=== PATIENT | male | born 1995 ===

== ENCOUNTER 2017-04-05 01:25 | Emergency (ER) | payer SELFPAY ==
[2017-04-05 01:40] VITALS: O2SAT 98
[2017-04-05] MEDS ORDERED: Naproxen 550 mg Tab PO STA (01:57)
[2017-04-05] MEDS ORDERED: Naproxen 550 mg Tab PO ONE (02:18)
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
[2017-04-05 05:25] VITALS: BP 120/80; PULSE 80; RESP 14; TEMP 98
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
== END 2017-04-05 03:50 | disposition home or self-care (01) ==
LOC: C.ER 01:25
DX: M25.562 Pain in left knee (principal)

== ENCOUNTER 2017-07-05 19:48 | Emergency (ER) | payer SELFPAY ==
[2017-07-05 19:57] VITALS: TEMP 98.6
[2017-07-05] MEDS ORDERED: Sodium Chloride 0.9% 1,000 ML ONE (19:58)
[2017-07-05 20:16] LABS: BASO # 0.1 K/uL (0.0-0.2); BASO % 1.6 % (0.0-2.0); EOS # 0.1 K/uL (0.0-0.7); EOS % 1.3 % (0.0-4.0); HEMOGLOBIN 15.6 g/dL (12.0-18.0); LYMPH # 2.1 K/uL (1.0-4.3); LYMPH % 30.2 % (20.0-40.0); MEAN CELL VOLUME 89.6 fL (80.0-94.0); MEAN CORPUSCULAR HEMOGLOBIN 31.1 pg (27.0-31.0); MEAN CORPUSCULAR HGB CONC 34.7 g/dL (33.0-37.0); MEAN PLATELET VOLUME 8.9 fL (7.2-11.7); MONO # 0.4 K/uL (0.0-0.8); MONO % 5.7 % (0.0-10.0); NEUT # 4.3 K/uL (1.8-7.0); NEUT % 61.2 % (50.0-75.0); RBC 5.01 Mil/uL (4.40-5.90); RED CELL DISTRIBUTION WIDTH 12.7 % (11.5-14.5)
[2017-07-05] MEDS ORDERED: Naloxone 0.4 mg/ml Inj (Adult) IV ONE (20:20)
[2017-07-05] MEDS ORDERED: Naloxone 0.4 mg/ml Inj (Adult) ONE ×2 (20:25→21:50)
[2017-07-05 20:32] LABS: ALB/GLOB RATIO 1.3 (1.0-2.1); ALBUMIN 4.5 g/dL (3.5-5.0); ALT/SGPT 24 U/L (21-72); AST/SGOT 22 U/L (17-59); BLOOD UREA NITROGEN 9 mg/dL (9-20); CALCIUM 7.8 mg/dl (8.6-10.4); GFR AFRICAN-AMERICAN > 60; GFR NON-AFRICAN AMERICAN > 60
--- NOTE | 2017-07-05 20:35 | C.PDOC ---
History Of Present Illness 22 y/o male brought in by ambulance presents to the ED for narcotics overdose. Prior to arrival EMS gave Narcan intranasal after patient admitted to using oxycodone. PMD: None provided per Grandfather @ bedside, pt with 3 prior OD's, failed outpatient long-term detox, could not get into a branch. actively using whatever street oral tabs he can get, believes he bought Percocet /Oxycodone today, but now believes he bought something laced with benzo's but cannot define. pt does not know his father, his mother killed herself, and pt's aunt ( grandfather's arely) had substance abuse issues and committed suicide last year. pt's grandmother is chronically ill @ home and addicted to narcotic pain relievers. There are no guns in the house. Time Seen by Provider: 07/05/17 20:16 Chief Complaint (Nursing): Substance Abuse History Per: Patient History/Exam Limitations: intoxication Onset/Duration Of Symptoms: Hrs Current Symptoms Are (Timing): Still Present Modifying Factor(s): Narcotics Past Medical History Vital Signs: Last Vital Signs Temp 98.6 F 07/05/17 19:53 Pulse 102 H 07/05/17 23:28 Resp 18 07/05/17 23:28 BP 146/98 H 07/05/17 23:28 Pulse Ox 97 07/06/17 00:27 - Medical History PMH: HTN Surgical History: No Surg Hx Family History: States: Unknown Family Hx - Social History Hx Alcohol Use: Yes Hx Substance Use: No - Immunization History Hx Tetanus Toxoid Vaccination: Yes Hx Influenza Vaccination: No Hx Pneumococcal Vaccination: No Review Of Systems Review Of Systems: ROS cannot be obtained secondary to pt's inabilty to answer questions. Psych: Positive for: Other (narcotics overdose) Physical Exam - Physical Exam Appears: No Acute Distress Skin: Normal Color, Warm, Dry Head: Atraumatic, Normacephalic Eye(s): bilateral: Abnormal Pupil (pinpoint) Nose: Normal Oral Mucosa: Other (no EtOH on breath) Neck: Normal, Normal ROM, Supple Cardiovascular: Rhythm Regular, No Murmur Respiratory: Normal Breath Sounds Gastrointestinal/Abdominal: Normal Exam, Other (vomited large amount of fluid on bedside) Back: Normal Inspection, No CVA Tenderness, No Vertebral Tenderness Extremity: Normal ROM, No Pedal Edema, No Deformity Neurological/Psych: Other (stuporous) ED Course And Treatment - Laboratory Results Result Diagrams: 07/05/17 20:11 07/05/17 20:20 O2 Sat by Pulse Oximetry: 97 (RA) Pulse Ox Interpretation: Normal Critical Care Time - Critical Care Note Total Time (in mins): 90 Documented critical care: time excludes all time spent performing seperately billable procedures. Medical Decision Making Medical Decision Making: persistent polysubstance abuse, alcohol abuse pt refused detox family and friends @ bedside encouraging detox, pt prefers to follow-up as outpatient. though u-tox + for benzo's only, pt with pinpoint pupils and dramatically improved with Narcan suggesting opiate use as well street-bought combination meds may not show up in our 7 item u-tox Disposition Doctor Will See Patient In The: Office Counseled Patient/Family Regarding: Studies Performed, Diagnosis - Disposition Referrals: Alcoholics Anonymous [Outside] [facility] [Outside] [facility] [Outside] [facility] [Outside] Disposition: HOME/ ROUTINE Disposition Time: 00:26 Condition: GOOD Additional Instructions: seek a substance abuse program Seek AA follow-up with our outpatient resources as listed below. Keep Narcan in your pocket at all times. Tell the people you are with to take it out of your pocket and spray up your nose to save your life from the next opiate overdose Have your family keep Narcan on their person and in their homes when you visit, in case of future narcotics overdose Prescriptions: Naloxone HCl [Narcan] 4 mg NS ONCE PRN #1 spray PRN Reason: opiate abuse Instructions: Drug Abuse and Drug Addiction (DC), Opioid Use Disorder Forms: [employer] (Slovenian) - Clinical Impression Clinical Impression: Polysubstance (including opioids) dependence, binge pattern - Scribe Statement The provider has reviewed the documentation as recorded by the Scribe ( Hiral Alejandro) All medical record entries made by the Scribe were at my direction and personally dictated by me. I have reviewed the chart and agree that the record accurately reflects my personal performance of the history, physical exam, medical decision making, and the department course for this patient. I have also personally directed, reviewed, and agree with the discharge instructions and disposition.
[2017-07-05 20:59] LABS: SQUAMOUS EPITHIAL < 1 /hpf (0-5); URINE BACTERIA RARE (<OCC); URINE BILIRUBIN NEGATIVE (NEGATIVE); URINE BLOOD NEGATIVE (NEGATIVE); URINE CLARITY Hazy (Clear); URINE COLOR Yellow (YELLOW); URINE GLUCOSE (UA) NORMAL (Normal); URINE LEUKOCYTE ESTERASE NEG Leu/uL (Negative); URINE PROTEIN 2+ mg/dL (NEGATIVE); URINE UROBILINOGEN NORMAL mg/dL (0.2-1.0)
[2017-07-05 21:11] LABS: BARBITURATES, UR NEGATIVE (NEGATIVE); BENZODIAZEPINES, UR POSITIVE (NEGATIVE); OPIATES, UR NEGATIVE (NEGATIVE); PHENCYCLIDINE, UR NEGATIVE (NEGATIVE)
[2017-07-05] MEDS ORDERED: Naloxone 0.4 mg/ml Inj (Adult) IVP STA (21:54)
[2017-07-05 23:28] VITALS: BP 146/98; PULSE 102; RESP 18
[2017-07-06 00:28] VITALS: O2SAT 97
--- NOTE | 2017-07-08 08:30 | CARD ---
APPROVED REPORT EKG Measurement Heart [id number] VT [id number] [id number] <Conclusion> Sinus tachycardia Minimal voltage criteria for LVH, may be normal variant Nonspecific T wave abnormality Abnormal ECG
== END 2017-07-06 00:33 | disposition home or self-care (01) ==
LOC: C.ER 19:48
DX: F11.20 Opioid dependence, uncomplicated (principal)
CPT/HCPCS: 80053; 81001; 82948; 85025; 93005; 96374; 96375; 96376; 99285; G0480; J2310; J2405

== ENCOUNTER 2018-02-12 06:52 | Emergency (ER) | payer BC ==
[2018-02-12 07:13] VITALS: BP 140/94; PULSE 92; RESP 20; TEMP 98.8; O2SAT 97
[2018-02-12] MEDS ORDERED: Amoxicillin-Clav 875-125 mg Tab PO STA (07:39)
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
[2018-02-12] MEDS ORDERED: Amoxicillin-Clav 875-125 mg Tab PO ONE (08:12)
== END 2018-02-12 08:15 | disposition home or self-care (01) ==
LOC: C.ER 06:52
DX: S31.154A Open bite of abdominal wall, left lower quadrant without penetration into peritoneal cavity, initial encounter (principal); Y04.1XXA Assault by human bite, initial encounter

== ENCOUNTER 2018-07-17 09:23 | Inpatient (IN) | payer BC ==
[2018-07-17 10:42] LABS: BASO % 0.2 % (0.0-2.0); LYMPH # 1.3 K/uL (1.0-4.3); LYMPH % 9.1 % (20.0-40.0); MEAN CORPUSCULAR HEMOGLOBIN 31.4 pg (27.0-31.0); MEAN PLATELET VOLUME 9.4 fL (7.2-11.7); MONO # 0.7 K/uL (0.0-0.8); NEUT # 12.4 K/uL (1.8-7.0); NEUT % 85.7 % (50.0-75.0); PLATELET COUNT 289 K/uL (130-400); RBC 4.76 Mil/uL (4.40-5.90); RED CELL DISTRIBUTION WIDTH 13.1 % (11.5-14.5)
[2018-07-17 10:43] LABS: MEAN CELL VOLUME 92.5 fL (80.0-94.0); WHITE BLOOD COUNT 14.5 K/uL (4.8-10.8)
[2018-07-17] MEDS ORDERED: Sodium Chloride 0.9% 1,000 ML IV ONE (10:47)
[2018-07-17 10:52] LABS: ALB/GLOB RATIO 1.3 (1.0-2.1); ALBUMIN 5.1 g/dL (3.5-5.0); ALT/SGPT 32 U/L (21-72); AST/SGOT 40 U/L (17-59); BLOOD UREA NITROGEN 15 mg/dL (9-20); CALCIUM 10.4 mg/dl (8.6-10.4); GFR NON-AFRICAN AMERICAN > 60
[2018-07-17 10:53] LABS: LYMPHOCYTE 9 % (20-40); MONOCYTE 4 % (0-10); NEUTROPHIL 87 % (50-75); TOTAL CELLS COUNTED 100
[2018-07-17 10:54] LABS: PLATELET ESTIMATE NORMAL (NORMAL)
[2018-07-17 10:55] LABS: ANISOCYTOSIS SLIGHT; TOXIC GRANULATION PRESENT
[2018-07-17] MEDS ORDERED: Sodium Chloride 0.9% 1,000 ML ONE (11:00)
[2018-07-17 11:10] LABS: SQUAMOUS EPITHIAL < 1 /hpf (0-5); URINE BILIRUBIN NEGATIVE (NEGATIVE); URINE BLOOD NEGATIVE (NEGATIVE); URINE CLARITY Hazy (Clear); URINE COLOR Yellow (YELLOW); URINE GLUCOSE (UA) NORMAL (Normal); URINE LEUKOCYTE ESTERASE TRACE Leu/uL (Negative); URINE PROTEIN 1+ mg/dL (NEGATIVE); URINE UROBILINOGEN NORMAL mg/dL (0.2-1.0)
[2018-07-17 11:41] LABS: BARBITURATES, UR NEGATIVE (NEGATIVE); BENZODIAZEPINES, UR NEGATIVE (NEGATIVE); OPIATES, UR NEGATIVE (NEGATIVE); PHENCYCLIDINE, UR NEGATIVE (NEGATIVE)
--- NOTE | 2018-07-17 12:11 | C.PDOC ---
History Of Present Illness 23 year old male with PMHx of anxiety, depression and substance abuse presents to the ED with grandfather requesting detoxification. Reports he takes Percocet, Xanax and Butorphanol that he buys on the street. Complains of bodyaches, nausea, chills, and vomiting for the past week. Denies any sore throat, headache, neck pain, chest pain, or shortness of breath. Patient presents febrile with a temperature of 100.2 Time Seen by Provider: 07/17/18 09:42 Chief Complaint (Nursing): Substance Abuse History Per: Patient, Family (grandfather) History/Exam Limitations: no limitations Onset/Duration Of Symptoms: Days Current Symptoms Are (Timing): Still Present Suicide/Self Injury Attempted (Context): None Modifying Factor(s): Other (Percocet, Xanax, Butorphanol ) Past Medical History Reviewed: Historical Data, Nursing Documentation, Vital Signs Vital Signs: Last Vital Signs Temp 100.2 F H 07/17/18 10:44 Pulse 62 07/17/18 10:44 Resp 18 07/17/18 10:44 BP 163/95 H 07/17/18 10:44 Pulse Ox 100 07/17/18 10:44 Primary Care Provider: FAMILY PROVIDER,NO - Medical History PMH: HTN Surgical History: No Surg Hx Family History: States: No Known Family Hx - Social History Hx Alcohol Use: No Hx Substance Use: Yes - Immunization History Hx Tetanus Toxoid Vaccination: Yes Hx Influenza Vaccination: No Hx Pneumococcal Vaccination: No Review Of Systems Except As Marked, All Systems Reviewed And Found Negative. Constitutional: Positive for: Fever, Chills, Other (bodyaches) ENT: Negative for: Throat Pain Cardiovascular: Negative for: Chest Pain Respiratory: Negative for: Shortness of Breath Gastrointestinal: Positive for: Nausea, Vomiting. Negative for: Abdominal Pain, Diarrhea Musculoskeletal: Negative for: Neck Pain, Back Pain Neurological: Negative for: Headache Physical Exam - Physical Exam Appears: Non-toxic, Other (ill-appearing, minimal painful distress ) Skin: Warm, Dry, No Rash Head: Normacephalic Eye(s): bilateral: Normal Inspection, PERRL, EOMI Ear(s): Bilateral: Normal Nose: Normal Oral Mucosa: Moist Tongue: Normal Appearing Lips: Normal Appearing Throat: Normal Neck: Supple Chest: Symmetrical Cardiovascular: Rhythm Regular Respiratory: Normal Breath Sounds, No Rales, No Rhonchi, No Wheezing Gastrointestinal/Abdominal: Soft, No Tenderness, No Guarding, No Rebound Neurological/Psych: Oriented x3, Normal Speech Gait: Steady ED Course And Treatment - Laboratory Results Result Diagrams: 07/17/18 10:34 07/17/18 10:34 Lab Results: Total Bilirubin 0.6 mg/dL (0.2-1.3) 07/17/18 10:34 AST 40 U/L (17-59) 07/17/18 10:34 ALT 32 U/L (21-72) 07/17/18 10:34 Alkaline Phosphatase 69 U/L (38-126) 07/17/18 10:34 Total Protein 9.0 g/dL (6.3-8.3) H 07/17/18 10:34 Albumin 5.1 g/dL (3.5-5.0) H 07/17/18 10:34 Globulin 3.9 gm/dL (2.2-3.9) 07/17/18 10:34 Albumin/Globulin Ratio 1.3 (1.0-2.1) 07/17/18 10:34 Urine Color Yellow (YELLOW) 07/17/18 10:42 Urine Clarity Hazy (Clear) 07/17/18 10:42 Urine pH 6.0 (5.0-8.0) 07/17/18 10:42 Ur Specific [place] 1.034 (1.003-1.030) H 07/17/18 10:42 Urine Protein 1+ mg/dL (NEGATIVE) H 07/17/18 10:42 Urine Glucose (UA) Normal mg/dL (Normal) 07/17/18 10:42 Urine Ketones 1+ mg/dL (NEGATIVE) H 07/17/18 10:42 Urine Blood Negative (NEGATIVE) 07/17/18 10:42 Urine Nitrate Negative (NEGATIVE) 07/17/18 10:42 Urine Bilirubin Negative (NEGATIVE) 07/17/18 10:42 Urine Urobilinogen Normal mg/dL (0.2-1.0) 07/17/18 10:42 Ur Leukocyte Esterase Trace Bambi/uL (Negative) H 07/17/18 10:42 Urine WBC (Auto) 14 /hpf (0-5) H 07/17/18 10:42 Urine RBC (Auto) 4 /hpf (0-3) H 07/17/18 10:42 Ur Squamous Epith Cells < 1 /hpf (0-5) 07/17/18 10:42 O2 Sat by Pulse Oximetry: 100 (RA) Pulse Ox Interpretation: Normal Medical Decision Making Medical Decision Making: Plan - Bloodwork - UA - Tylenol 975mg PO - Reglan 10mg IVP - Zofran 4mg IVP - Crisis Evaluation Upon reevaluation, patient reports feeling better. Patient is medically clear for further evaluation by Crisis. Disposition Counseled Patient/Family Regarding: Studies Performed, Diagnosis - Disposition Disposition: HOSPITALIZED Disposition Time: 12:30 Condition: GUARDED Forms: [employer] (Luxembourgish) - POA Present On Arrival: None - Clinical Impression Clinical Impression: Drug dependence - Scribe Statement The provider has reviewed the documentation as recorded by the Scribe Iman Katz All medical record entries made by the Scribe were at my direction and personall y dictated by me. I have reviewed the chart and agree that the record accurately reflects my personal performance of the history, physical exam, medical decision making, and the department course for this patient. I have also personally directed, reviewed, and agree with the discharge instructions and disposition. Decision To Admit - Pt Status Changed To: Hospital Disposition Of: Inpatient - Admit Certification Admit to Inpatient:: After my assessment, the patient will require h ospitalization for at least two midnights. This is because of the severity of symptoms shown, intensity of services needed, and/or the medical risk in this patient being treated as an outpatient. - InPatient: Physician Admission Certification: I certify that this patient requires 2 or more midnights of care for the following reason:: opioid dependance - . Bed Request Type: Detox Admitting Physician: Katerina Landa Patient Diagnosis: Drug dependence
[2018-07-17] MEDS ORDERED: Buprenorphine Hydrochloride 2 mg SL ONE ×3 (14:13→16:07)
--- NOTE | 2018-07-17 16:00 | PCM.BM ---
Treatment Plan Problems - Problems identified on initial assessmt ineffective coping Date Initiated: 07/17/18 Time Initiated: 15:00 Assessment reference: NA Status: Active powerlessness Date Initiated: 07/17/18 Time Initiated: 15:00 Assessment reference: NA Status: Active denial Date Initiated: 07/17/18 Time Initiated: 15:00 Assessment reference: NA Status: Active Treatment assets and liabiliti Patient Assests: cooperative, self-reliant, ADL independent, good support system, good interpersonal skills Patient Liabilities: relationship conflicts - Milieu Protocol Maintain good personal hygiene: daily Encourage regular showers, daily Remind patient to perform daily oral care, daily Assist patient to perform ADL's Conduct patient checks and document Observation sheet: Q15 minutes Maintain personal safety: every shift Educate patient to report safety concerns to staff, every shift Monitor environment for contraband/sharps Medication safety: Monitor for expected outcome, potential side effects: every shift, Assess barriers to learning: every shift, Assess readiness for medication education: every shift
[2018-07-17] MEDS ORDERED: Aluminum Hydroxide/Magnesium Hydroxide Susp (30 mL) PO PRN (16:28)
--- NOTE | 2018-07-18 09:16 | PCM.PSYCH ---
Initial Psychiatric Evaluation - Initial Psychiatric Evaluation Type of Admission: Voluntary Legal Status: Capacity Chief Complaint (in patient's own words): "I need detox" History of Present Illness and Precipitating Events: The patient was seen, chart reviewed and case discussed. This is a 23-year-old male, single with no child, works as a security escort. He admits to using Percocets up to 120 milligrams per day since 2012. He also uses Suboxone up to 16 mg/day on and off when he is withdrawing. He overdosed once in late 2017. He also uses 8-10 mg of Xanax since 2014 and he reports agitation, anxiety and mood swings as withdrawal symptoms. No seizures He smokes marijuana and 3 cigarettes a day. He denies other drugs and alcohol This is a second detox, he was in [facility] for detox and rehab. Past psychiatric: He claims to have PTSD because his mother committed suicide in front of him when he was a child. He also feels depressed and anxious and irritable. He attempted suicide in 2017 by trying to hang himself. Currently, he feels depressed, anxious but denies suicide plan or intention. He has felt like wishing to not wake up recently but did not plan to hurt himself. Family psych history: Mother had addictions and depression and killed herself. Cousins had addiction. Medical history: Hypertension. He has been ignoring his condition. Current Medications: Active Medications Generic Name Dose Route Start Last Admin Trade Name Freq PRN Reason Stop Dose Admin Al Hydrox/Mg Hydrox/Simethicone 30 ml 07/17/18 16:28 Maalox 30 Ml PO TID PRN Indigestion / Heartburn Buprenorphine HCl 8 mg 07/18/18 10:00 Subutex SL 07/23/18 09:59 .TAPER SEA Taper Chlordiazepoxide 25 mg 07/17/18 14:39 07/17/18 14:49 Librium PO 25 mg Q4 PRN Administration Symptoms of alcohol withdrawl Chlordiazepoxide 25 mg 07/17/18 18:00 07/18/18 06:05 Librium PO 07/22/18 17:59 25 mg Q6H SEA Administration Taper Clonidine HCl 0.1 mg 07/17/18 14:23 07/17/18 21:43 Catapres PO 0.1 mg Q4 PRN Administration Symptoms of alcohol withdrawl Dicyclomine HCl 10 mg 07/17/18 14:17 07/17/18 14:48 Bentyl PO 10 mg Q6 PRN Administration Muscle spasm Ibuprofen 600 mg 07/17/18 16:18 Motrin Tab PO Q6 PRN Pain, moderate (4-7) Loperamide HCl 2 mg 07/17/18 16:18 Imodium PO Q8 PRN Diarrhea Nicotine 1 patch 07/18/18 10:00 Nicoderm Cq TD DAILY SEA Ondansetron HCl 4 mg 07/17/18 14:21 Zofran Tab PO Q6 PRN Nausea/Vomiting Trazodone HCl 100 mg 07/17/18 22:00 07/17/18 21:44 Desyrel PO 100 mg HS PRN Administration Sleep Past Psychiatric History - Past Psychiatric History Pertinent Medical Hx (Current Medical&Sleep Prob, Allergies): Allergies Allergy/AdvReac Type Severity Reaction Status Date / Time No Known Allergies Allergy Verified 07/17/18 09:39 No Known Home Med 07/17/18 Review of Systems - Psychiatric Psychiatric: Abnormal Sleep Pattern, Anhedonia, Anxiety, Depression, Difficulty Concentrating, Irritability, Mood Swings. absent: Hallucinations, Homicidal Ideation, Paranoia, Suicidal Ideation Mental Status Examination - Personal Presentation Personal Presentation: Looks stated age - Affect Affect: Broad - Motor Activity Motor Activity: Calm - Reliability in Providing Information Reliability in Providing Information: Good - Speech Speech: Organized - Mood Mood: Depressed, Anxious - Formal Thought Process Formal Thought Process: No Impairment - Cognitive Functions Orientation: Person, Place, Situation, Time Attention/Concentration: Easily distracted Estimate of Intelligence: Average Judgement: Intact, as evidence by: Insight regarding need for hospitalization Memory: Recent intact, as evidence by: Ability to recall events of the day, Remote intact, as evidenced by: Abilit to recall sig. life events - Risk Risk: Withdrawal, Diminished functioning - Strength & Assets Inventory Strength & Assets Inventory: Cooperative - Limitations Limitations: Other DSM 5 DX - DSM 5 DSM 5 Diagnosis: Opioid withdrawal Opioid use disorder, severe Sedative, hypnotic or anxiolytic withdrawal Sedative, hypnotic or anxiolytic use disorder, severe PTSD Major depressive disorder, severe, without psychosis Cannabis use disorder, severe - Recommended/Plan of Treatment Treatment Recommendations and Plan of Treatment: Taper with subutex and librium Remeron for depression Gabapentin for augmentation and anxiety As needed medications All risks, benefits and alternatives of the meds discussed, and the pt agreed and understood. Attend groups and activities Supportive therapy and psychoeducation [place] for abstinence CBT for relapse prevention Encourage MAT Refer to rehab or IOP, and self-help groups Teach healthy lifestyle methods, i.e. diet, exercise, meditation Smoking cessation with [place] Nicotine patch if needed 34 min Projected ELOS: 5-6 days - Smoking Cessation Smoking Cessation Initiated: Yes
[2018-07-18] MEDS: Buprenorphine Hydrochloride 2 mg SL SCH (09:41)
[2018-07-19] MEDS: Buprenorphine Hydrochloride 2 mg SL SCH (09:21)
--- NOTE | 2018-07-19 12:53 | PCM.PYCHPN ---
Psychiatric Progress Note - Psychiatric Progress Note Patient seen today, length of contact: 16 min Patient Chief Complaint: "I am anxious" Problems Identified/Issues Discussed: The pt is seen, chart reviewed, case is discussed with staff. The pt is compliant with medications and reports no side-effects. Symptoms are improving but needs more time to stabilize and to avoid relapse. Pt attends groups and activities. Support given, psycho-education provided. After care discussed. Medication Change: Yes (detox changes daily) Medical Record Reviewed: Yes Mental Status Examination - Cognitive Function Orientation: Person, Place, Situation, Time Memory: Intact Attention: WNL Concentration: Poor Association: WNL Fund of Knowledge: WNL - Mood Mood: Depressed, Anxious - Affect Affect: Broad - Speech Speech: Appropriate - Formal Thought Process Formal Thought Process: No Impairment - Suicidal Ideation Suicidal Ideation: No - Homicidal Ideation Homicidal Ideation: No Goal/Treatment Plan - Goal/Treatment Plan Need for Continued Stay: Discharge may exacerbated symptoms, Severe functional impairment Progress Toward Problem(s) and Goals/Treatment Plan: Taper with subutex and librium Remeron for depression Gabapentin for augmentation and anxiety As needed medications All risks, benefits and alternatives of the meds discussed, and the pt agreed and understood. Attend groups and activities Supportive therapy and psychoeducation [place] for abstinence CBT for relapse prevention Encourage MAT Refer to rehab or IOP, and self-help groups Teach healthy lifestyle methods, i.e. diet, exercise, meditation Smoking cessation with [place] Nicotine patch if needed
[2018-07-20] MEDS: Buprenorphine Hydrochloride 2 mg SL SCH (09:18)
--- NOTE | 2018-07-20 12:09 | PCM.PYCHPN ---
Psychiatric Progress Note - Psychiatric Progress Note Patient seen today, length of contact: 16 min Patient Chief Complaint: "I am anxious" Problems Identified/Issues Discussed: The pt is seen, chart reviewed, case is discussed with staff. The pt is compliant with medications and reports no side-effects. Symptoms are improving but needs more time to stabilize and to avoid relapse. Pt attends groups and activities. Support given, psycho-education provided. After care discussed. Medication Change: Yes (detox changes daily) Medical Record Reviewed: Yes Mental Status Examination - Cognitive Function Orientation: Person, Place, Situation, Time Memory: Intact Attention: WNL Concentration: Poor Association: WNL Fund of Knowledge: WNL - Mood Mood: Depressed, Anxious - Affect Affect: Broad - Speech Speech: Appropriate - Formal Thought Process Formal Thought Process: No Impairment - Suicidal Ideation Suicidal Ideation: No - Homicidal Ideation Homicidal Ideation: No Goal/Treatment Plan - Goal/Treatment Plan Need for Continued Stay: Discharge may exacerbated symptoms, Severe functional impairment Progress Toward Problem(s) and Goals/Treatment Plan: Taper with subutex and librium Remeron for depression Gabapentin for augmentation and anxiety As needed medications All risks, benefits and alternatives of the meds discussed, and the pt agreed and understood. Attend groups and activities Supportive therapy and psychoeducation [place] for abstinence CBT for relapse prevention Encourage MAT Refer to rehab or IOP, and self-help groups Teach healthy lifestyle methods, i.e. diet, exercise, meditation Smoking cessation with [place] Nicotine patch if needed
[2018-07-20 20:19] VITALS: O2SAT 97
[2018-07-21 05:51] VITALS: BP 133/80; PULSE 70; RESP 20; TEMP 97.8
[2018-07-21] MEDS ORDERED: Buprenorphine Hydrochloride 2 mg SL ONE (07:30)
--- NOTE | 2018-07-21 12:55 | PCM.PYCHDC ---
Mental Status Examination - Mental Status Examination Orientation: Person, Place, Situation, Time Memory: Intact Mood: Neutral Affect: Constricted Speech: Soft Attention: WNL Concentration: WNL Association: WNL Fund of Knowledge: WNL Formal Thought Process: No Impairment Description of patient's judgement and insight: good,fair Psychotic Thoughts and Behaviors: denies any AVH Suicidal Ideation: No Current Homicidal Ideation?: No Discharge Summary - Discharge Note Reason for Hospitalization: The patient was seen, chart reviewed and case discussed. 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 He admits to using Percocets up to 120 milligrams per day since 2012. He also uses Suboxone up to 16 mg/day on and off when he is withdrawing. He overdosed once in late 2017. He also uses 8-10 mg of Xanax since 2014 and he reports agitation, anxiety and mood swings as withdrawal symptoms. No seizures He smokes marijuana and 3 cigarettes a day. He denies other drugs and alcohol This is a second detox, he was in [facility] for detox and rehab. Past psychiatric: He claims to have PTSD because his mother committed suicide in front of him when he was a child. He also feels depressed and anxious and irritable. He attempted suicide in 2017 by trying to hang himself. Currently, he feels depressed, anxious but denies suicide plan or intention. He has felt like wishing to not wake up recently but did not plan to hurt himself. Consultations:: List each consultation separately and include: 1. Reason for request. 2. Findings. 3. Follow-up Summary of Hospital Course include:: 1. Description of specific treatment plan utilized for patients during their course of treatmen. 2. Summarize the time- course for resolution of acute symptoms and/or regressed behaviors. 3. Describe issues identified and worked on during hospitalization. 4. Describe medication utilized. 5. Describe medical problems identified and treated. 6. Reassessment of suicide risk - Final Diagnosis (DSM 5) Condition upon Discharge: GOOD DSM 5: Opioid withdrawal Opioid use disorder, severe Sedative, hypnotic or anxiolytic withdrawal Sedative, hypnotic or anxiolytic use disorder, severe PTSD Major depressive disorder, severe, without psychosis Cannabis use disorder, severe Disposition: HOME/ ROUTINE Prescriptions/Medication Reconciliation: Gabapentin [Neurontin] 300 mg PO TID #90 cap Mirtazapine [Remeron] 15 mg PO HS #30 tab Propranolol [Inderal] 10 mg PO TID #90 tab QUEtiapine [SEROquel] 50 mg PO HS #30 tab traZODone [Desyrel] 100 mg PO HS PRN #30 tab PRN Reason: Sleep
== END 2018-07-21 07:45 | disposition home or self-care (01) | DRG 895 ==
LOC: C.ER 09:23 → C.7D 12:32
PROVIDERS: ADMIT Psychiatry & Neurology Psychiatry; ATTEND Psychiatry & Neurology Psychiatry
PROC: HZ2ZZZZ Detoxification Services for Substance Abuse Treatment (ICD-10-PCS; principal; 2018-07-17)
PROC: HZ46ZZZ Group Counseling for Substance Abuse Treatment, Psychoeducation (ICD-10-PCS; 2018-07-17)
PROC: GZ3ZZZZ Medication Management (ICD-10-PCS; 2018-07-17)
PROC: HZ2ZZZZ Detoxification Services for Substance Abuse Treatment (ICD-10-PCS; 2018-07-17)
DX: F11.23 Opioid dependence with withdrawal (principal); F13.239 Sedative, hypnotic or anxiolytic dependence with withdrawal, unspecified; F32.2 Major depressive disorder, single episode, severe without psychotic features; F43.10 Post-traumatic stress disorder, unspecified; F17.210 Nicotine dependence, cigarettes, uncomplicated; F12.10 Cannabis abuse, uncomplicated; I10 Essential (primary) hypertension; Z91.5 Personal history of self-harm; Z81.8 Family history of other mental and behavioral disorders